=== PATIENT | male | born 1940 | race Caucasian/White ===

== ENCOUNTER 2018-01-12 22:24 | Outpatient (REF) | payer MEDICARE, MEDICAID, SELFPAY ==
[2018-01-12 23:08] LABS: HCT 33.4 % (40.0-50.0); HGB 10.8 g/dL (13.5-17.5); Mean Corp. HGB Concentration 32.3 g/dL (32.0-36.0); Mean Corpuscular Volume 99.1 fL (80-95); Mean Platelet Volume 9.9 fL (8.0-11.0); Platelet Count 637 x1000/uL (130-400); RBC 3.37 m/cumm (4.50-6.00); RBC Distribution Width 13.9 % (11.8-14.1); White Blood Cell Count 12.35 k/cumm (4.4-10.8)
[2018-01-12 23:16] LABS: BUN 37 mg/dL (7-18); CREATININE 1.85 mg/dL (0.70-1.30); Calcium 8.9 mg/dL (8.5-10.1); Chloride 101 mmol/L (98-107); Estimated GFR 35.82 (mL/min/1.73m2); Glucose 127 mg/dL (70-100); Potassium 4.3 mmol/L (3.5-5.1); Sodium 137 mmol/L (136-145)
== END 2018-01-12 22:44 ==
LOC: NCHCN 22:24
PROVIDERS: PCP Internal Medicine; Visit Provider Family Medicine
DX: I10 Essential (primary) hypertension (principal); F10.20 Alcohol dependence, uncomplicated; M62.81 Muscle weakness (generalized); I50.30 Unspecified diastolic (congestive) heart failure
CPT/HCPCS: 80048; 85027

== ENCOUNTER 2018-01-17 21:03 | Outpatient (REF) | payer MEDICARE, MEDICAID, SELFPAY ==
[2018-01-17 21:28] LABS: Abs Immature Grans 0.11 k/cumm (0.0-0.09); Absolute Basophil Count 0.03 k/cumm (0.0-0.2); Absolute Eosinophil Count 0.16 k/cumm (0.0-0.7); Absolute Lymphocyte Count 1.05 k/cumm (1.2-3.4); Absolute Monocyte Count 1.08 k/cumm (0.11-0.7); Absolute Neutrophil Count 4.52 k/cumm (1.2-6.7); Basophils % 0.4; Eosinophils % 2.3; HCT 32.3 % (40.0-50.0); HGB 10.2 g/dL (13.5-17.5); Immature Grans % 1.6; Lymphocytes % 15.1; Mean Corp. HGB Concentration 31.6 g/dL (32.0-36.0); Mean Corpuscular Hemoglobin 32.2 pg (27.0-33.0); Mean Corpuscular Volume 101.9 fL (80-95); Mean Platelet Volume 9.2 fL (8.0-11.0); Monocytes % 15.5; Neutrophils % 65.1; Platelet Count 573 x1000/uL (130-400); RBC 3.17 m/cumm (4.50-6.00); White Blood Cell Count 6.95 k/cumm (4.4-10.8)
[2018-01-17 21:31] LABS: Anion Gap 11.2 mmol/L (3-11); BUN 23 mg/dL (7-18); CO2 24.8 mmol/L (21.0-32.0); CREATININE 1.44 mg/dL (0.70-1.30); Calcium 8.5 mg/dL (8.5-10.1); Chloride 106 mmol/L (98-107); Estimated GFR 47.82 (mL/min/1.73m2); Glucose 102 mg/dL (70-100); Sodium 142 mmol/L (136-145)
== END 2018-01-17 21:23 ==
LOC: NCHCN 21:03
PROVIDERS: PCP Internal Medicine; Visit Provider Family Medicine
DX: I10 Essential (primary) hypertension (principal); M62.81 Muscle weakness (generalized); D64.9 Anemia, unspecified
CPT/HCPCS: 80048; 85025

== ENCOUNTER 2018-07-17 17:18 | Outpatient (REF) | payer MEDICARE, MEDICAID, SELFPAY ==
[2018-07-17 19:21] LABS: Abs Immature Grans 0.02 k/cumm (0.0-0.09); Absolute Basophil Count 0.01 k/cumm (0.0-0.2); Absolute Lymphocyte Count 0.67 k/cumm (1.2-3.4); Absolute Monocyte Count 1.61 k/cumm (0.11-0.7); Basophils % 0.1; HCT 39.2 % (40.0-50.0); HGB 12.7 g/dL (13.5-17.5); Immature Grans % 0.2; Lymphocytes % 5.4; Mean Corp. HGB Concentration 32.4 g/dL (32.0-36.0); Mean Corpuscular Hemoglobin 29.1 pg (27.0-33.0); Mean Corpuscular Volume 89.9 fL (80-95); Mean Platelet Volume 10.7 fL (8.0-11.0); Monocytes % 12.9; Neutrophils % 81.4; Platelet Count 243 x1000/uL (130-400); RBC 4.36 m/cumm (4.50-6.00); RBC Distribution Width 18.3 % (11.8-14.1); White Blood Cell Count 12.45 k/cumm (4.4-10.8)
[2018-07-17 19:37] LABS: Absolute Neutrophil Count 10.13 k/cumm (1.2-6.7)
[2018-07-17 20:30] LABS: Anion Gap 10.6 mmol/L (3-11); BUN 22 mg/dL (7-18); CO2 24.4 mmol/L (21.0-32.0); CREATININE 1.25 mg/dL (0.70-1.30); Calcium 8.3 mg/dL (8.5-10.1); Chloride 97 mmol/L (98-107); Estimated GFR 56.31 (mL/min/1.73m2); Glucose 106 mg/dL (70-100); Potassium 3.4 mmol/L (3.5-5.1); Sodium 132 mmol/L (136-145)
[2018-07-17 22:37] LABS: Anisocytosis 1+; Diff Comment Agrees w/ Instrument
== END 2018-07-17 17:38 ==
LOC: NCHCN 17:18
PROVIDERS: PCP Internal Medicine; Visit Provider Family Medicine
DX: R50.9 Fever, unspecified (principal); R19.7 Diarrhea, unspecified
CPT/HCPCS: 80048; 87449; 82270; 85025

== ENCOUNTER 2018-09-04 14:27 | Outpatient (REF) | payer MEDICARE, MEDICAID, SELFPAY ==
[2018-09-04 17:00] LABS: Abs Immature Grans 0.03 k/cumm (0.0-0.09); Absolute Basophil Count 0.01 k/cumm (0.0-0.2); Absolute Eosinophil Count 0.01 k/cumm (0.0-0.7); Absolute Lymphocyte Count 0.82 k/cumm (1.2-3.4); Absolute Neutrophil Count 4.98 k/cumm (1.2-6.7); Basophils % 0.1; Eosinophils % 0.1; HCT 39.7 % (40.0-50.0); HGB 13.2 g/dL (13.5-17.5); Immature Grans % 0.4; Lymphocytes % 11.8; Mean Corp. HGB Concentration 33.2 g/dL (32.0-36.0); Mean Corpuscular Hemoglobin 30.5 pg (27.0-33.0); Mean Corpuscular Volume 91.7 fL (80-95); Mean Platelet Volume 10.3 fL (8.0-11.0); Monocytes % 15.8; Neutrophils % 71.8; Platelet Count 262 x1000/uL (130-400); RBC 4.33 m/cumm (4.50-6.00); RBC Distribution Width 14.3 % (11.8-14.1); White Blood Cell Count 6.95 k/cumm (4.4-10.8)
[2018-09-04 17:41] LABS: ESR 15 MM/HR (1-20)
== END 2018-09-04 14:47 ==
LOC: NCHCN 14:27
PROVIDERS: PCP Internal Medicine; Visit Provider Family Medicine
DX: R53.83 Other fatigue (principal); R52 Pain, unspecified
CPT/HCPCS: 85652; 85025

== ENCOUNTER 2019-09-11 22:22 | Outpatient (REF) | payer MEDICARE, MEDICAID, SELFPAY ==
[2019-09-11 17:58] LABS: HCT 39.9 % (40.0-50.0); HGB 12.9 g/dL (13.5-17.5); Mean Corp. HGB Concentration 32.3 g/dL (32.0-36.0); Mean Corpuscular Hemoglobin 30.1 pg (27.0-33.0); Mean Corpuscular Volume 93.2 fL (80-95); Mean Platelet Volume 10.2 fL (8.0-11.0); Platelet Count 287 x1000/uL (130-400); RBC 4.28 m/cumm (4.50-6.00); RBC Distribution Width 14.1 % (11.8-14.1); White Blood Cell Count 4.82 k/cumm (4.4-10.8)
[2019-09-11 18:19] LABS: Anion Gap 7.1 mmol/L (3-11); BUN 12 mg/dL (7-18); CO2 27.9 mmol/L (21.0-32.0); CREATININE 1.34 mg/dL (0.70-1.30); Calcium 8.8 mg/dL (8.5-10.1); Chloride 103 mmol/L (98-107); Estimated GFR 51.83 (mL/min/1.73m2); Ferritin 50 ng/mL (26-388); Glucose 92 mg/dL (74-106); Potassium 4.5 mmol/L (3.5-5.1); Sodium 138 mmol/L (136-145)
[2019-09-13 10:10] LABS: Transferrin 194 mg/dL (201-352)
== END 2019-09-11 22:42 ==
LOC: LBN 22:22
PROVIDERS: PCP Internal Medicine; Visit Provider Family Medicine
DX: D50.9 Iron deficiency anemia, unspecified (principal); I10 Essential (primary) hypertension; I50.30 Unspecified diastolic (congestive) heart failure
CPT/HCPCS: 80048; 85027; 82728; 84466

== ENCOUNTER 2021-07-07 16:33 | Outpatient (REF) | payer MEDICARE, MEDICAID, SELFPAY ==
[2021-07-07 21:11] LABS: HCT 39.7 % (40.0-50.0); HGB 12.7 g/dL (13.5-17.5); MCH 30.7 pg (27.0-33.0); MCV 96 fL (80-95); MPV 10.5 fL (8.0-11.0); Platelet Count 290 10^3/uL (130-400); RBC 4.14 10^6/uL (4.36-5.78); RDW 13.4 % (11.8-14.1); RDW-SD 47.3 fL; WBC 7.07 10^3/uL (4.4-10.8)
[2021-07-07 21:48] LABS: Iron 57 ug/dL (65-175); Total Iron Binding Capacity 302 ug/dL (250-450); Transferrin Sat 19 % (20-55)
[2021-07-07 22:11] LABS: ALT 18 U/L (16-63); Anion Gap 7.4 mmol/L (3-11); BUN 18 mg/dL (7-18); CO2 27.6 mmol/L (21.0-32.0); CREATININE 1.5 mg/dL (0.70-1.30); Calcium 8.4 mg/dL (8.5-10.1); Calculated LDL 46 mg/dL (<100); Chloride 103 mmol/L (98-107); Cholesterol 111 mg/dL (<200); Estimated GFR 45.26 (mL/min/1.73m2); Glucose 91 mg/dL (74-106); HDL Cholesterol 34 mg/dL (40-60); Potassium 5.1 mmol/L (3.5-5.1); Sodium 138 mmol/L (136-145); Triglyceride 157 mg/dL (<150); Vitamin B12 599 pg/mL (193-986)
== END 2021-07-07 16:34 | disposition home or self-care (01) ==
LOC: NCHCN 16:33
PROVIDERS: PCP Internal Medicine; Visit Provider Family Medicine
DX: I50.30 Unspecified diastolic (congestive) heart failure (principal); N18.31 Chronic kidney disease, stage 3a; I73.9 Peripheral vascular disease, unspecified; F32.9 Major depressive disorder, single episode, unspecified; Z87.19 Personal history of other diseases of the digestive system
CPT/HCPCS: 80048; 80061; 85027; 82607; 83540; 83550; 84460

== ENCOUNTER 2022-03-02 15:36 | Outpatient (REF) | payer MEDICARE, MEDICAID, SELFPAY ==
[2022-03-02 15:46] LABS: HCT 38.5 % (40.0-50.0); HGB 11.7 g/dL (13.5-17.5); MCH 29.5 pg (27.0-33.0); MCHC 30.4 % (32.0-36.0); MCV 97 fL (80-95); MPV 10.2 fL (8.0-11.0); Platelet Count 378 10^3/uL (130-400); RBC 3.96 10^6/uL (4.36-5.78); RDW 14.1 % (11.8-14.1); RDW-SD 50.8 fL; WBC 6.33 10^3/uL (4.4-10.8)
[2022-03-02 16:28] LABS: Ferritin 53 ng/mL (26-388)
== END 2022-03-02 15:37 | disposition home or self-care (01) ==
LOC: NCHCN 15:36
PROVIDERS: PCP Internal Medicine; Visit Provider Family Medicine
DX: D50.9 Iron deficiency anemia, unspecified (principal)
CPT/HCPCS: 85027; 82728

== ENCOUNTER 2023-04-19 15:27 | Outpatient (REF) | payer MEDICARE, MEDICAID, SELFPAY ==
[2023-04-19 20:52] LABS: Anion Gap 9.7 mmol/L (3-11); BUN 16 mg/dL (7-18); CO2 26.3 mmol/L (21.0-32.0); CREATININE 1.2 mg/dL (0.70-1.30); Calcium 8.9 mg/dL (8.5-10.1); Chloride 107 mmol/L (98-107); Estimated GFR 61.13 (mL/min/1.73m2); Glucose 111 mg/dL (74-106); Potassium 4.6 mmol/L (3.5-5.1); Sodium 143 mmol/L (136-145)
== END 2023-04-19 15:28 | disposition home or self-care (01) ==
LOC: NCHCN 15:27
PROVIDERS: PCP Internal Medicine; Visit Provider Family Medicine
DX: N18.9 Chronic kidney disease, unspecified (principal)
CPT/HCPCS: 80048

== ENCOUNTER 2023-08-11 21:38 | Outpatient (REF) | payer MEDICARE, MEDICAID, SELFPAY ==
[2023-08-11 21:08] LABS: Bilirubin Negative (Negative); Blood Trace-intact (Negative); Clarity Clear (Clear); Glucose Negative (Negative); Ketones Negative (Negative); Leukocyte Esterase Large (Negative); Nitrite Negative (Negative); Specific Gravity 1.015 (1.005-1.025); Urobilinogen 0.2 mg/dL (Up to 0.2); pH 5.5 (5-8)
[2023-08-11 21:12] LABS: Bacteria Rare HPF (Negative); C & S Indicated? Yes; Casts Negative LPF (Negative); Crystals Negative HPF (Negative); Epithelial Cells Rare HPF (Negative); Mucus Negative (Negative); RBC 0-2 HPF (0-2); WBC >50 HPF (0-5)
== END 2023-08-11 21:39 | disposition home or self-care (01) ==
LOC: NCHCN 21:38
PROVIDERS: PCP Internal Medicine; Referring Provider Family Medicine; Visit Provider Family Medicine
DX: R32 Unspecified urinary incontinence (principal); B96.89 Other specified bacterial agents as the cause of diseases classified elsewhere
CPT/HCPCS: 81003; 81015; 87086

== ENCOUNTER 2023-08-16 18:23 | Outpatient (REF) | payer MEDICARE, MEDICAID, SELFPAY ==
[2023-08-16 17:45] LABS: Bilirubin Negative (Negative); Blood Negative (Negative); Clarity Clear (Clear); Glucose Negative (Negative); Ketones Negative (Negative); Leukocyte Esterase Small (Negative); Nitrite Negative (Negative); Urobilinogen 0.2 mg/dL (Up to 0.2)
[2023-08-16 18:06] LABS: Bacteria Rare HPF (Negative); C & S Indicated? Yes; Casts Negative LPF (Negative); Crystals Negative HPF (Negative); Epithelial Cells Few HPF (Negative); Mucus Negative (Negative); Other Cells Few Transitional (Negative); RBC 0-2 HPF (0-2); WBC 20-50 HPF (0-5)
== END 2023-08-16 18:24 | disposition home or self-care (01) ==
LOC: NCHCN 18:23
PROVIDERS: PCP Internal Medicine; Visit Provider Family Medicine
DX: R32 Unspecified urinary incontinence (principal); B96.89 Other specified bacterial agents as the cause of diseases classified elsewhere
CPT/HCPCS: 81003; 81015; 87086

== ENCOUNTER 2023-11-17 17:29 | Outpatient (REF) | payer MEDICARE, MEDICAID, SELFPAY ==
[2023-11-17 21:31] LABS: Abs Immature Grans 0.09 10^3/uL (0.0-0.06); Absolute Basophil Count 0.04 10^3/uL (0.0-0.2); Absolute Eosinophil Count 0.09 10^3/uL (0.0-0.7); Absolute Lymphocyte Count 0.85 10^3/uL (1.2-3.4); Absolute Monocyte Count 1.21 10^3/uL (0.1-0.8); Basophils % 0.3 %; Eosinophils % 0.8 %; Immature Grans % 0.8 %; Lymphocytes % 7.2 %; MCH 22.7 pg (27.0-33.0); MCHC 27.5 % (32.0-36.0); MCV 83 fL (80-95); MPV 10.5 fL (8.0-11.0); Monocytes % 10.3 %; Neutrophils % 80.6 %; Platelet Count 418 10^3/uL (130-400); RBC 2.91 10^6/uL (4.36-5.78); RDW 13.9 % (11.8-14.1); RDW-SD 41.9 fL; WBC 11.79 10^3/uL (4.4-10.8)
[2023-11-17 21:50] LABS: HGB 6.6 g/dL (13.5-17.5)
[2023-11-17 22:01] LABS: ALT 16 U/L (16-63); AST 20 U/L (15-37); Albumin 3.7 g/dL (3.4-5.0); Alkaline Phosphatase 74 U/L (46-116); Anion Gap 12.8 mmol/L (3-11); BUN 30 mg/dL (7-18); Bilirubin, Total 0.18 mg/dL (0.2-1.0); CO2 21.2 mmol/L (21.0-32.0); CREATININE 1.5 mg/dL (0.70-1.30); Calcium 8.7 mg/dL (8.5-10.1); Chloride 109 mmol/L (98-107); Estimated GFR 46.48 (mL/min/1.73m2); Glucose 119 mg/dL (74-106); Potassium 4.7 mmol/L (3.5-5.1); Sodium 143 mmol/L (136-145); TSH (W/Ref FT4) 2.68 uIU/mL (0.36-3.74); Total Protein 7.1 g/dL (6.4-8.2); Vitamin D 25 Total 13.1 ng/mL (30-100)
[2023-11-17 22:13] LABS: Hypochromasia 3+
== END 2023-11-17 17:30 | disposition home or self-care (01) ==
LOC: NCHCN 17:29
PROVIDERS: PCP Internal Medicine; Visit Provider Family Medicine
DX: R53.83 Other fatigue (principal); N18.31 Chronic kidney disease, stage 3a
CPT/HCPCS: 80053; 82306; 84443; 85025

== ENCOUNTER 2023-11-25 14:57 | Outpatient (REF) | payer MEDICARE, MEDICAID, SELFPAY ==
[2023-11-25 15:02] LABS: HCT 34.4 % (40.0-50.0); HGB 9.8 g/dL (13.5-17.5); MCH 23.6 pg (27.0-33.0); MCHC 28.5 % (32.0-36.0); MCV 83 fL (80-95); MPV 10.3 fL (8.0-11.0); Platelet Count 389 10^3/uL (130-400); RBC 4.15 10^6/uL (4.36-5.78); RDW 15.6 % (11.8-14.1); RDW-SD 46.9 fL; WBC 6.46 10^3/uL (4.4-10.8)
[2023-11-25 15:17] LABS: Iron 19 ug/dL (65-175); Total Iron Binding Capacity 430 ug/dL (250-450); Transferrin Sat 4 % (20-55)
[2023-11-25 15:31] LABS: Calculated LDL 56 mg/dL (<100); Cholesterol 123 mg/dL (<200); Ferritin 16 ng/mL (26-388); HDL Cholesterol 46 mg/dL (40-60); Triglyceride 109 mg/dL (<150)
== END 2023-11-25 14:58 | disposition home or self-care (01) ==
LOC: NCHCN 14:57
PROVIDERS: PCP Internal Medicine; Visit Provider Family Medicine
DX: E78.5 Hyperlipidemia, unspecified (principal)
CPT/HCPCS: 80061; 85027; 82728; 83540; 83550

== ENCOUNTER 2024-01-23 18:58 | Outpatient (REF) | payer MEDICARE, MEDICAID, SELFPAY ==
[2024-01-23 16:51] LABS: Abs Immature Grans 0.04 10^3/uL (0.0-0.06); Absolute Basophil Count 0.03 10^3/uL (0.0-0.2); Absolute Eosinophil Count 0.16 10^3/uL (0.0-0.7); Absolute Lymphocyte Count 1.25 10^3/uL (1.2-3.4); Absolute Monocyte Count 0.78 10^3/uL (0.1-0.8); Basophils % 0.4 %; Eosinophils % 2.1 %; HGB 11.3 g/dL (13.5-17.5); Immature Grans % 0.5 %; Lymphocytes % 16.1 %; MCH 27.7 pg (27.0-33.0); MCHC 29.7 % (32.0-36.0); MCV 93 fL (80-95); MPV 10.7 fL (8.0-11.0); Monocytes % 10.1 %; Neutrophils % 70.8 %; Platelet Count 343 10^3/uL (130-400); RBC 4.08 10^6/uL (4.36-5.78); RDW 20.6 % (11.8-14.1); RDW-SD 68.9 fL; WBC 7.76 10^3/uL (4.4-10.8)
[2024-01-23 17:08] LABS: ALT 17 U/L (16-63); AST 22 U/L (15-37); Albumin 3.8 g/dL (3.4-5.0); Alkaline Phosphatase 87 U/L (46-116); Anion Gap 11.6 mmol/L (3-11); BUN 22 mg/dL (7-18); Bilirubin, Total 0.23 mg/dL (0.2-1.0); CO2 23.4 mmol/L (21.0-32.0); CREATININE 1.4 mg/dL (0.70-1.30); Calcium 9.3 mg/dL (8.5-10.1); Chloride 107 mmol/L (98-107); Estimated GFR 50.49 (mL/min/1.73m2); Glucose 106 mg/dL (74-106); Potassium 4.8 mmol/L (3.5-5.1); Sodium 142 mmol/L (136-145); Total Protein 6.7 g/dL (6.4-8.2)
[2024-01-23 17:23] LABS: Anisocytosis 2+; Diff Comment RBC Morph Reviewed; Hypochromasia 1+; Poikilocytes 2+
== END 2024-01-23 18:59 | disposition home or self-care (01) ==
LOC: NCHCN 18:58
PROVIDERS: PCP Internal Medicine; Visit Provider Family Medicine
DX: K21.9 Gastro-esophageal reflux disease without esophagitis (principal)
CPT/HCPCS: 80053; 85025